=== PATIENT | female | born 1970 | race Caucasian/White ===

== ENCOUNTER 2021-11-03 14:18 | Outpatient (CLI) | payer BC | END 2021-11-03 14:19 | disposition home or self-care (01) | LOC: CSHMRI 14:18 | PROVIDERS: ATTEND Orthopaedic Surgery | DX: M75.42 Impingement syndrome of left shoulder (principal); M75.92 Shoulder lesion, unspecified, left shoulder; M75.102 Unspecified rotator cuff tear or rupture of left shoulder, not specified as traumatic ==